=== PATIENT | female | born 1975 | race Caucasian/White ===

== ENCOUNTER → 2016-09-30 | Outpatient (CLI) | payer OTHER ==
[~2016-09-30] MED LIST: PERCOCET 325 MG1 TA4 PO
== END ==
LOC: MAMMO 10:34
DX: Z12.31 Encounter for screening mammogram for malignant neoplasm of breast (principal)
CPT/HCPCS: G0202

== ENCOUNTER → 2017-09-19 | Outpatient (CLI) | payer OTHER ==
[2012-07-16 11:25] VITALS: BP 120/77
== END ==
LOC: LAB 07:52
DX: Z13.220 Encounter for screening for lipoid disorders (principal); Z00.00 Encounter for general adult medical examination without abnormal findings

== ENCOUNTER → 2018-09-18 | Outpatient (CLI) | payer OTHER ==
[2012-07-16 11:25] VITALS: BP 120/77
== END ==
LOC: RAD 08:15
DX: N20.0 Calculus of kidney (principal); R93.5 Abnormal findings on diagnostic imaging of other abdominal regions, including retroperitoneum

== ENCOUNTER → 2018-09-28 | Outpatient (CLI) | payer OTHER ==
[2012-07-16 11:25] VITALS: BP 120/77
[2018-09-29 11:25] LABS: BASO # 0.1 (0.02-0.10); EOS # 0.1 (0.04-0.40); EOS % 2.9 % (1.0-5.0); HEMOGLOBIN 15.4 g/dL (12.5-16.0); LYMPH# 1.4 (1.50-4.00); MEAN CELL VOLUME 90 fl (78-100); MEAN CORPUSCULAR HEMOGLOBIN 31 pg (27-31); MEAN CORPUSCULAR HGB CONC 34 g/dL (33-37); MEAN PLATELET VOLUME 11.6 fl (7.4-10.4); MONO # 0.5 (0.20-0.80); NEU # 2.7 (1.40-6.50); PLATELET COUNT 216 K/mm3 (130-400); RED BLOOD COUNT 5.03 M/mm3 (4.10-5.30); RED CELL DISTRIBUTION WIDTH 12.8 % (11.5-14.5); WHITE BLOOD COUNT 4.8 K/mm3 (4.8-10.8)
[2018-09-29 12:26] LABS: POTASSIUM 4.4 mmol/L (3.6-5.0)
[2018-09-29 12:27] LABS: ALBUMIN 4.5 g/dL (3.5-5.0); TOTAL BILIRUBIN 0.8 mg/dL (0.2-1.3); TOTAL PROTEIN 8.1 g/dL (6.3-8.2)
== END ==
LOC: LAB 17:17
PROVIDERS: Family Medicine
DX: N95.9 Unspecified menopausal and perimenopausal disorder (principal)

== ENCOUNTER → 2020-01-14 | Outpatient (CLI) | payer OTHER ==
[2012-07-16 11:25] VITALS: BP 120/77
== END ==
LOC: LAB 11:57
DX: Z20.828 Contact with and (suspected) exposure to other viral communicable diseases (principal)

== ENCOUNTER → 2020-10-06 | Outpatient (CLI) | payer OTHER ==
[2012-07-16 11:25] VITALS: BP 120/77
[2020-10-06 09:51] LABS: EOS # 0.1 (0.04-0.40); EOS % 1.9 % (1.0-5.0); HEMATOCRIT 42.9 % (37.0-47.0); HEMOGLOBIN 14.7 g/dL (12.5-16.0); LYMPH# 1.4 (1.50-4.00); MEAN CELL VOLUME 91 fl (78-100); MEAN CORPUSCULAR HEMOGLOBIN 31 pg (27-31); MEAN CORPUSCULAR HGB CONC 34 g/dL (33-37); MEAN PLATELET VOLUME 10.8 fl (7.4-10.4); MONO # 0.5 (0.20-0.80); NEU # 3.8 (1.40-6.50); PLATELET COUNT 226 K/mm3 (130-400); RED BLOOD COUNT 4.74 M/mm3 (4.10-5.30); RED CELL DISTRIBUTION WIDTH 12.8 % (11.5-14.5); WHITE BLOOD COUNT 5.9 K/mm3 (4.8-10.8)
[2020-10-06 10:16] LABS: ALBUMIN 4.2 g/dL (3.5-5.0); POTASSIUM 4.2 mmol/L (3.5-5.1)
[2020-10-06 10:19] LABS: TOTAL PROTEIN 7.4 g/dL (6.4-8.3)
[2020-10-06 10:20] LABS: TOTAL BILIRUBIN 0.4 mg/dL (0.2-1.2)
[2020-10-06 10:55] LABS: D-DIMER 0.24 mg/L FEU (0.15-0.50)
== END ==
LOC: RAD 09:34
PROVIDERS: Family Medicine
DX: Z00.00 Encounter for general adult medical examination without abnormal findings (principal); M47.816 Spondylosis without myelopathy or radiculopathy, lumbar region; M41.86 Other forms of scoliosis, lumbar region; E78.5 Hyperlipidemia, unspecified; M54.42 Lumbago with sciatica, left side; R22.42 Localized swelling, mass and lump, left lower limb; R53.83 Other fatigue; Z82.62 Family history of osteoporosis

== ENCOUNTER → 2020-11-26 | Outpatient (CLI) | payer OTHER ==
[2012-07-16 11:25] VITALS: BP 120/77
[2020-11-26 23:59] LABS: FOLLICLE STIMULATING HORMONE 24.4 mIU/mL (()); LUTENIZING HORMONE 14.2 mIU/mL (())
[2020-11-27 00:02] LABS: PROGESTERONE <0.1 ng/mL (())
[2020-12-01 08:49] LABS: ESTRONE (E1) LEVEL 41 pg/mL (())
== END ==
LOC: LAB 11:25 → RAD 11:25
PROVIDERS: Family Medicine
DX: N92.1 Excessive and frequent menstruation with irregular cycle (principal)

== ENCOUNTER → 2021-01-02 | Outpatient (CLI) | payer OTHER ==
[2012-07-16 11:25] VITALS: BP 120/77
== END ==
LOC: MAMMO 08:34
DX: Z12.31 Encounter for screening mammogram for malignant neoplasm of breast (principal)

== ENCOUNTER → 2021-03-13 | Outpatient (CLI) | payer OTHER | LOC: LAB 15:43 | DX: Z20.822 Contact with and (suspected) exposure to COVID-19 (principal) ==

== ENCOUNTER → 2021-05-23 | Outpatient (REF) | LOC: LAB 13:29 | DX: U07.1 COVID-19 (principal) ==

== ENCOUNTER → 2021-10-13 | Outpatient (CLI) | payer OTHER ==
[2021-10-13 08:20] LABS: BASO # 0.07 K/mm3 (0.02-0.10); EOS # 0.14 K/mm3 (0.04-0.40); EOS % 2.5 % (1.0-5.0); HEMOGLOBIN 14.5 g/dL (12.5-16.0); LYMPH# 1.58 K/mm3 (1.50-4.00); MEAN CELL VOLUME 89 fl (78-100); MEAN CORPUSCULAR HEMOGLOBIN 31 pg (27-31); MEAN CORPUSCULAR HGB CONC 35 g/dL (33-37); MEAN PLATELET VOLUME 10.6 fl (7.4-10.4); MONO # 0.37 K/mm3 (0.20-0.80); PLATELET COUNT 209 K/mm3 (130-400); RED CELL DISTRIBUTION WIDTH 12.8 % (11.5-14.5); WHITE BLOOD COUNT 5.6 K/mm3 (4.8-10.8)
[2021-10-13 08:41] LABS: POTASSIUM 4.6 mmol/L (3.5-5.1)
[2021-10-13 08:44] LABS: TOTAL PROTEIN 7.4 g/dL (6.4-8.3)
[2021-10-13 08:46] LABS: TOTAL BILIRUBIN 0.7 mg/dL (0.2-1.2)
== END ==
LOC: LAB 07:53
PROVIDERS: Family Medicine
DX: Z00.00 Encounter for general adult medical examination without abnormal findings (principal); E78.5 Hyperlipidemia, unspecified; J30.9 Allergic rhinitis, unspecified; E55.9 Vitamin D deficiency, unspecified

== ENCOUNTER → 2022-02-16 | Outpatient (CLI) | payer OTHER | LOC: MAMMO 10:30 | DX: Z12.31 Encounter for screening mammogram for malignant neoplasm of breast (principal) ==

== ENCOUNTER → 2022-04-20 | Outpatient (CLI) | payer OTHER ==
[2022-04-21 00:09] LABS: FOLLICLE STIMULATING HORMONE 13.4 mIU/mL (()); LUTENIZING HORMONE 2.9 mIU/mL (()); PROGESTERONE 0.1 ng/mL (())
== END ==
LOC: LAB 15:13
PROVIDERS: Family Medicine
DX: J30.9 Allergic rhinitis, unspecified (principal); E55.9 Vitamin D deficiency, unspecified; N95.1 Menopausal and female climacteric states; E03.9 Hypothyroidism, unspecified

== ENCOUNTER → 2023-08-29 | Outpatient (CLI) | payer OTHER | LOC: RAD 09:18 | DX: M25.761 Osteophyte, right knee (principal) ==

== ENCOUNTER → 2024-01-19 | Outpatient (CLI) | payer OTHER ==
[2024-01-19 08:45] LABS: BASO # 0.03 K/mm3 (0.02-0.10); EOS % 1.8 % (1.0-5.0); HEMATOCRIT 45.2 % (37.0-47.0); HEMOGLOBIN 15.6 g/dL (12.5-16.0); LYMPH# 1.64 K/mm3 (1.50-4.00); MEAN CELL VOLUME 89 fl (78-100); MEAN CORPUSCULAR HEMOGLOBIN 31 pg (27-31); MEAN CORPUSCULAR HGB CONC 35 g/dL (33-37); MEAN PLATELET VOLUME 10.6 fl (7.4-10.4); MONO # 0.39 K/mm3 (0.20-0.80); PLATELET COUNT 239 K/mm3 (130-400); RED BLOOD COUNT 5.08 M/mm3 (4.10-5.30); RED CELL DISTRIBUTION WIDTH 12.1 % (11.5-14.5); WHITE BLOOD COUNT 5.6 K/mm3 (4.8-10.8)
[2024-01-19 08:51] LABS: ALBUMIN 4.5 g/dL (3.5-5.0)
[2024-01-19 08:52] LABS: CALCIUM 9.8 mg/dL (8.3-10.5)
[2024-01-19 08:53] LABS: TOTAL PROTEIN 7.8 g/dL (6.4-8.3)
[2024-01-19 08:55] LABS: TOTAL BILIRUBIN 0.6 mg/dL (0.2-1.2)
== END ==
LOC: LAB 07:52
PROVIDERS: Family Medicine
DX: E78.5 Hyperlipidemia, unspecified (principal); E55.9 Vitamin D deficiency, unspecified; E03.9 Hypothyroidism, unspecified; I10 Essential (primary) hypertension